=== PATIENT | female | born 1930 | race Caucasian/White ===

== ENCOUNTER → 2016-08-15 | Day surgery (SDC) | payer MEDICARE ==
[~2016-08-15] MED LIST: ACET-822 PO; APIX2.5T PO; ASPI81CH CHEW; BUPIVACAINE HCL PF 0.5% 30 ML VIAL ONE; BUPIVACAINE HCL PF 0.75% 30 ML VIAL ONE; COQ150CA PO; ENAL10TA PO; FAMO1TAB37 PO; GABA100C4 PO; HYDR12.57 PO; METO50TA PO; PROPOFOL 200 MG/20 ML AMP IV ONE; RED600TA PO; TRIAMCINOLONE ACETONIDE 40 MG/ML VIAL I-ARTICULR ONE; VITA2000 PO; ZETI10TA5 PO; methylPREDNISolone ACETATE 40 MG/ML VIAL I-ARTICULR ONE
--- NOTE | 2016-08-18 17:31 | M6 ---
cc: CARLENE GARLAND M.D. DATE 08/15/2016 DATE OF 1930 PROCEDURE Fluoroscopically guided bilateral lumbar facet joint injections (bilateral L3-4, L4-5 and L5-S1 facet joints). History and physical was completed and signed. Consent was signed. Procedure site was marked. Medications were listed and reconciled. Pain score was recorded. Allergies were noted. Time out was taken. Fluoroscopy time was recorded where applicable. Sedation was administered or directed by Dr. Garland. The patient was given oxygen. The patient was monitored by a registered nurse. Total procedure time was greater than 15 minutes. IV was started, blood pressure cuff, pulse oximeter and EKG were applied. The patient was placed in the prone position on a Brad table sedated with small amounts of propofol titrated to effect. Vital signs were monitored and remained stable throughout the procedure. The lumbar area was prepped with alcohol and 10% Betadine solution and draped with sterile drapes. Fluoroscopy was used in a Lonnie dog view to clearly visualize the bilateral lumbar facet joints at L3-4, L4-5 and L5-S1. Separate sterile 3-1/2-inch 25-gauge spinal needles were advanced into these joints under fluoroscopic guidance. There was negative aspiration for blood or any other type of fluid and at each location the patient was given 1 mL of Marcaine 0.75% which contained 10 milligrams of Kenalog. Following the procedure the patient was taken to the recovery room with stable vital signs, neurologically intact. W. MD LETI Robison/TWIN /10:54 AM /5:27 PM
== END | disposition home or self-care (01) ==
LOC: PHSDC 09:29
PROVIDERS: ATTEND Pain Medicine Interventional Pain Medicine
DX: M54.5 Low back pain (principal)
CPT/HCPCS: 64493; 64494; 64495; 99152; J1030; J3301

== ENCOUNTER 2017-10-31 08:27 | Observation (INO) ==
[2017-10-31 08:44] LABS: Baso # (Auto) 0.1 th/mm3 (0.0-0.2); Baso % (Auto) 1.3 % (0.0-2.0); Eos # (Auto) 0.1 th/mm3 (0.0-0.4); Hematocrit 45.8 % (35.0-46.0); Hemoglobin 16.1 gm/dL (11.6-15.3); Lymph # (Auto) 1.6 th/mm3 (1.0-4.8); Lymph % (Auto) 29.5 % (9.0-44.0); Mean Corpuscular HGB Conc 35.1 % (32.0-36.0); Mean Corpuscular Hemoglobin 32.4 pg (27.0-34.0); Mean Corpuscular Volume 92.4 fL (80.0-100.0); Mono # (Auto) 0.9 th/mm3 (0.0-0.9); Mono % (Auto) 16.4 % (0.0-8.0); Neut # (Auto) 2.7 th/mm3 (1.8-7.7); Neut % (Auto) 50.8 % (16.0-70.0); Platelet Count 199 th/mm3 (150-450); Red Blood Count 4.96 mil/mm3 (4.00-5.30); Red Cell Distribution Width 13.7 % (11.6-17.2); White Blood Count 5.4 th/mm3 (4.0-11.0)
--- NOTE | 2017-10-31 08:44 | ED ---
HPI General Chief Complaint: Neuro Symptoms/Deficit Stated Complaint: Evac/Stroke allert Time Seen by Provider: 10/31/17 08:33 Source: patient Mode of arrival: EMS Limitations: no limitations History of Present Illness HPI Narrative: The patient is a 86-year-old female who presents to the emergency department via EMS as a stroke alert. The patient states she awakened this morning, was feeling fine, however, developed some mild confusion. EMS states that in route to the hospital the patient stated she felt like she was having difficulty getting words out and they noticed a mild right facial droop. Therefore, EMS called a stroke alert in the field. Upon arrival the patient has minimal right facial droop, however, has no difficulty with speech. The patient's stroke scale was 1. The patient does take Eliquis for history of pulmonary embolism. The patient does have a history of significant coronary artery disease with previous CABG and a history of pulmonary embolism. She also has a history of hypertension. The patient states she was recently changed from lisinopril 2.5 mg twice a day to lisinopril 5 mg twice a day. However, the patient has been taking twice the dose as needed by accident. However, her blood pressure continues to be elevated. The patient is followed by her building maintenance technician, Dr. Anderson, and her primary physician, Dr. Thomas. The patient denies any acute weakness of the arms or legs. She denies any difficulty with movement of the upper or lower extremities. She denies any acute visual changes. He does complain of mild shortness of breath but denies any chest pain per Onset (ago): minute(s) Time: 08:38 Last Observed Normal: 08:20 Timing confirmed by: other (EMS) Location: right face History of same: No Severity: mild Quality: weak Relieving factors: none Exacerbating factors: none Context: sudden onset On Anticoagulants: Yes Associated symptoms: confusion Treatments Prior to Arrival: none Related Data Home Medications Medication Instructions Recorded Confirmed acetaminophen 1,000 mg PO Q6H PRN 09/04/17 10/31/17 aspirin 81 mg PO DAILY 09/04/17 10/31/17 cholecalciferol (vitamin D3) 2,000 unit PO DAILY 09/04/17 10/31/17 [Vitamin D3] coenzyme Q10 100 mg PO BID 09/04/17 10/31/17 gabapentin 300 mg PO BID 09/04/17 10/31/17 hydrochlorothiazide 12.5 mg PO DAILY 09/04/17 10/31/17 lisinopril 5 mg PO BID 09/04/17 10/31/17 metoprolol tartrate 25 mg PO BID 09/04/17 10/31/17 red yeast rice 600 mg PO BID 09/04/17 10/31/17 apixaban [Eliquis] 5 mg PO BID 09/05/17 10/31/17 Allergies Allergy/AdvReac Type Severity Reaction Status Date / Time diclofenac Allergy Severe Rash Verified 10/31/17 08:42 procaine Allergy Severe SHAKEY Verified 10/31/17 08:42 amlodipine Allergy Mild INDIGESTION Verified 10/31/17 08:42 atorvastatin Allergy Mild INDIGESTION Verified 10/31/17 08:42 pravastatin Allergy Mild INDIGESTION Verified 10/31/17 08:42 simvastatin Allergy Mild INDIGESTION Verified 10/31/17 08:42 Review of Systems ROS: all other systems reviewed are negative [facility] Medical History Medical History HTN (hypertension) (Acute) Myocardial infarction (Acute) Neuropathy (Acute) Surgical History Surgical History H/O knee surgery (Acute) S/P AVR (aortic valve replacement) (Acute) S/P CABG x 5 (Acute) S/P appy (Acute) Social History Social History Substance History: No History of Abuse Smoking Status: Never smoker How Often Do You Have a Drink Containing Alcohol: 2 to 4 times a month Recent Travel in [place] within the Last 8 Weeks: No Recent Out of Country Travel within the Last 8 Weeks: No Exam Narrative Exam Narrative: GENERAL: Awake, alert, pleasant 86-year-old female who appears her stated age and is in no acute respiratory distress. SKIN: Focused skin assessment warm/dry. HEAD: Atraumatic. Normocephalic. EYES: Pupils equal and round. Pupils are 3 mm bilateral and reactive. EOMs are intact. Visual bhandari are symmetric. ENT: No nasal bleeding or discharge. Mucous membranes pink and moist. NECK: Trachea midline. No JVD. CARDIOVASCULAR: Regular rate and rhythm. No murmur appreciated. RESPIRATORY: No accessory muscle use. Clear to auscultation. Breath sounds equal bilaterally. GASTROINTESTINAL: Abdomen soft, non-tender, nondistended. MUSCULOSKELETAL: No obvious deformities. No clubbing. No cyanosis. No edema. NEUROLOGICAL: Awake and alert. Minimal right facial droop. EOMs are intact. Visual bhandari are symmetric. Tongue is midline. No drift of the upper or lower extremities. Finger to nose is normal. Heel to eagle is normal. Patient is able to tell me the day, month, year, and identify my hand. Sensation is symmetric on the V1, V2, V3 distribution of the face. Sensation is also symmetric on the arms and legs bilaterally. PSYCHIATRIC: Appropriate mood and affect; insight and judgment normal. Course Initial Documented Vital Signs Blood Pressure 200/84 H 10/31/17 08:42 Last Documented Vital Signs Temperature 98.0 F 10/31/17 09:06 Pulse Rate 55 L 10/31/17 10:00 Respiratory Rate 16 10/31/17 10:00 Blood Pressure 188/87 H 10/31/17 10:00 Pulse Oximetry 97 10/31/17 10:00 Critical Care Time Critical Care Time: Yes Total Critical Care Time: 35 Attestation: Aggregate critical care time was 35 minutes. Time to perform other separately billable procedures was not included in the critical care time. My time did not include minutes spent treating any other patients simultaneously or on activities that did not directly contribute to the patient's treatment. The services I provided to this patient were to treat and/or prevent clinically significant deterioration that could result in: Intracranial hemorrhage, CVA, chronic neurologic deficit, herniation, . I provided critical care services requiring my management, as noted below: Chart data review, documentation time, medication orders and management, vital sign assessments/reviewing monitor data, ordering and reviewing lab tests, ordering and interpreting/reviewing x-rays and diagnostic studies, care of the patient and discussion of the patient with the admitting physicians. NIH Stroke Scale NIH Stroke Scale Level of Consciousness: 0-Alert Orientation Questions: 0-Answers both correct Responds to Commands: 0-Both tasks correct Gaze Eye Movement: 0-Horizontal movement WNL Visual Bhandari: 0-No visual field defect Facial Movement: 1-Minor facial palsy Motor Functions Arm LEFT: 0-No drift Motor Functions Arm RIGHT: 0-No drift Motor Functions Leg LEFT: 0-No drift Motor Functions Leg RIGHT: 0-No drift Limb Ataxia: 0-No ataxia Sensory Loss: 0-No sensory loss Best Language: 0-Normal Articulation: 0-Normal Extinction or Inattention Sensory: 0-Absent Total: 1 Medical Decision Making MDM Narrative Medical decision making narrative: IV was established, labs are drawn and sent, and the patient was placed on cardiac telemetry monitoring and continuous pulse oximetry monitoring. The patient was called a stroke alert in the field, her assessment in the emergency department as a stroke scale of 1. I do not believe the patient would be a candidate for TPA secondary to a stroke scale of 1 and currently began on Eliquis. The patient may have hypertensive urgency/ emergency with her elevated blood pressure. I discussed the patient immediately with Dr. Calabrese, the on-call neurologist, who agrees with noncontrast CT the brain but no TPA administration. MRI of the brain reveals possible hemorrhage in the left basal ganglia, MRI was recommended. I discussed the patient with Dr. Anselmo Chowdhury, MRI of the brain was obtained. The head of the bed was placed about 30. MRI of the brain is negative for hemorrhage. The patient is already on Eliquis, will hold other anticoagulants until evaluation by medicine. I discussed the patient with Dr. Garcia who agrees with admission. Medical Screen Exam Complete: Yes Emergency Medical Condition: Yes Differential Diagnosis Differential Diagnosis: Differential diagnosis includes CVA, TIA, intracranial hemorrhage, hypertensive urgency, hypertensive emergency, transient global amnesia, encephalitis. Lab Data Result diagrams: 10/31/17 08:23 10/31/17 08:23 Lab Results 10/31/17 10/31/17 10/31/17 Range/Units 08:23 08:23 08:23 CBC w Diff Auto diff final WBC 5.4 (4.0-11.0) th/mm3 RBC 4.96 (4.00-5.30) mil/mm3 Hgb 16.1 H (11.6-15.3) gm/dL Hct 45.8 (35.0-46.0) % MCV 92.4 (80.0-100.0) fL MCH 32.4 (27.0-34.0) pg MCHC 35.1 (32.0-36.0) % RDW 13.7 (11.6-17.2) % Plt Count 199 (150-450) th/mm3 MPV 8.0 (7.0-11.0) fL Neut % (Auto) 50.8 (16.0-70.0) % Lymph % (Auto) 29.5 (9.0-44.0) % [place]house % (Auto) 16.4 H (0.0-8.0) % Eos % (Auto) 2.0 (0.0-4.0) % Baso % (Auto) 1.3 (0.0-2.0) % Neut # (Auto) 2.7 (1.8-7.7) th/mm3 Lymph # (Auto) 1.6 (1.0-4.8) th/mm3 Morehouse # (Auto) 0.9 (0.0-0.9) th/mm3 Eos # (Auto) 0.1 (0.0-0.4) th/mm3 Baso # (Auto) 0.1 (0.0-0.2) th/mm3 WBC Differential . Differential Comment . PT 11.2 (9.8-11.6) sec INR 1.1 Ratio APTT 29.2 (24.3-30.1) sec Fibrinogen 373 (227-377) mg/dL Sodium (136-145) meq/L Potassium (3.5-5.1) meq/L Chloride (98-107) meq/L Carbon Dioxide (21.0-32.0) meq/L Anion Gap (5-15) meq/L BUN (7-18) mg/dL Creatinine (0.50-1.00) mg/dL Estimated GFR (>89) mL/min POC Glucose (68-110) mg/dl Random Glucose (74-106) mg/dL Calcium (8.5-10.1) mg/dL Total Bilirubin (0.2-1.0) mg/dL AST (15-37) U/L ALT (10-53) U/L Alkaline Phosphatase (45-117) U/L Total Creatine Kinase 55 (26-192) U/L Troponin I Less than 0.02 L (0.02-0.05) ng/mL Total Protein (6.4-8.2) g/dL Albumin (3.4-5.0) g/dL Beta HCG, Quant Cancelled Ur Collection Type Urine Color (Yellw/Straw) Urine Clarity (Clear) Urine pH (5.0-8.5) Ur Specific [place] (1.002-1.035) Urine Protein (Neg-Trace) mg/dL Urine Glucose (UA) (Negative) mg/dL Urine Ketones (Negative) mg/dL Urine Occult Blood (Negative) Urine Nitrate (Negative) Urine Bilirubin (Negative) Urine Urobilinogen (Less than 2) mg/dL Ur Leukocyte Esterase (Negative) Urine WBC (0-5) /hpf Ur Squamous Epith Cells (0-5) /hpf Micro UA Comment Ur Microscopic Review Urine Culture Comments Urine Opiates Screen (Neg) Ur Barbiturates Screen (Neg) Ur Amphetamines Screen (Neg) U Benzodiazepines Scrn (Neg) Urine Cocaine Screen (Neg) U Cannabinoids Screen (Neg) 10/31/17 10/31/17 10/31/17 Range/Units 08:23 08:59 09:30 CBC w Diff WBC (4.0-11.0) th/mm3 RBC (4.00-5.30) mil/mm3 Hgb (11.6-15.3) gm/dL Hct (35.0-46.0) % MCV (80.0-100.0) fL MCH (27.0-34.0) pg MCHC (32.0-36.0) % RDW (11.6-17.2) % Plt Count (150-450) th/mm3 MPV (7.0-11.0) fL Neut % (Auto) (16.0-70.0) % Lymph % (Auto) (9.0-44.0) % [place]house % (Auto) (0.0-8.0) % Eos % (Auto) (0.0-4.0) % Baso % (Auto) (0.0-2.0) % Neut # (Auto) (1.8-7.7) th/mm3 Lymph # (Auto) (1.0-4.8) th/mm3 [place]house # (Auto) (0.0-0.9) th/mm3 Eos # (Auto) (0.0-0.4) th/mm3 Baso # (Auto) (0.0-0.2) th/mm3 WBC Differential Differential Comment PT (9.8-11.6) sec INR Ratio APTT (24.3-30.1) sec Fibrinogen (227-377) mg/dL Sodium 130 L (136-145) meq/L Potassium 4.0 (3.5-5.1) meq/L Chloride 94 L (98-107) meq/L Carbon Dioxide 26.7 (21.0-32.0) meq/L Anion Gap 9 (5-15) meq/L BUN 9 (7-18) mg/dL Creatinine 0.87 (0.50-1.00) mg/dL Estimated GFR 62 L (>89) mL/min POC Glucose 93 (68-110) mg/dl Random Glucose 93 (74-106) mg/dL Calcium 9.6 (8.5-10.1) mg/dL Total Bilirubin 0.2 (0.2-1.0) mg/dL AST 26 (15-37) U/L ALT 26 (10-53) U/L Alkaline Phosphatase 52 (45-117) U/L Total Creatine Kinase (26-192) U/L Troponin I (0.02-0.05) ng/mL Total Protein 6.8 (6.4-8.2) g/dL Albumin 3.4 (3.4-5.0) g/dL Beta HCG, Quant Ur Collection Type Urine Color (Yellw/Straw) Urine Clarity (Clear) Urine pH (5.0-8.5) Ur Specific [place] (1.002-1.035) Urine Protein (Neg-Trace) mg/dL Urine Glucose (UA) (Negative) mg/dL Urine Ketones (Negative) mg/dL Urine Occult Blood (Negative) Urine Nitrate (Negative) Urine Bilirubin (Negative) Urine Urobilinogen (Less than 2) mg/dL Ur Leukocyte Esterase (Negative) Urine WBC (0-5) /hpf Ur Squamous Epith Cells (0-5) /hpf Micro UA Comment Ur Microscopic Review Urine Culture Comments Urine Opiates Screen Neg (Neg) Ur Barbiturates Screen Neg (Neg) Ur Amphetamines Screen Neg (Neg) U Benzodiazepines Scrn Neg (Neg) Urine Cocaine Screen Neg (Neg) U Cannabinoids Screen Neg (Neg) 10/31/17 Range/Units 09:30 CBC w Diff WBC (4.0-11.0) th/mm3 RBC (4.00-5.30) mil/mm3 Hgb (11.6-15.3) gm/dL Hct (35.0-46.0) % MCV (80.0-100.0) fL MCH (27.0-34.0) pg MCHC (32.0-36.0) % RDW (11.6-17.2) % Plt Count (150-450) th/mm3 MPV (7.0-11.0) fL Neut % (Auto) (16.0-70.0) % Lymph % (Auto) (9.0-44.0) % [place] % (Auto) (0.0-8.0) % Eos % (Auto) (0.0-4.0) % Baso % (Auto) (0.0-2.0) % Neut # (Auto) (1.8-7.7) th/mm3 Lymph # (Auto) (1.0-4.8) th/mm3 [place] # (Auto) (0.0-0.9) th/mm3 Eos # (Auto) (0.0-0.4) th/mm3 Baso # (Auto) (0.0-0.2) th/mm3 WBC Differential Differential Comment PT (9.8-11.6) sec INR Ratio APTT (24.3-30.1) sec Fibrinogen (227-377) mg/dL Sodium (136-145) meq/L Potassium (3.5-5.1) meq/L Chloride (98-107) meq/L Carbon Dioxide (21.0-32.0) meq/L Anion Gap (5-15) meq/L BUN (7-18) mg/dL Creatinine (0.50-1.00) mg/dL Estimated GFR (>89) mL/min POC Glucose (68-110) mg/dl Random Glucose (74-106) mg/dL Calcium (8.5-10.1) mg/dL Total Bilirubin (0.2-1.0) mg/dL AST (15-37) U/L ALT (10-53) U/L Alkaline Phosphatase (45-117) U/L Total Creatine Kinase (26-192) U/L Troponin I (0.02-0.05) ng/mL Total Protein (6.4-8.2) g/dL Albumin (3.4-5.0) g/dL Beta HCG, Quant Ur Collection Type Cath Urine Color Yellow (Yellw/Straw) Urine Clarity Clear (Clear) Urine pH 7.0 (5.0-8.5) Ur Specific [place] Less/equal 1.005 (1.002-1.035) Urine Protein Negative (Neg-Trace) mg/dL Urine Glucose (UA) Negative (Negative) mg/dL Urine Ketones Negative (Negative) mg/dL Urine Occult Blood Negative (Negative) Urine Nitrate Negative (Negative) Urine Bilirubin Negative (Negative) Urine Urobilinogen 0.2 (Less than 2) mg/dL Ur Leukocyte Esterase Negative (Negative) Urine WBC 0-5 (0-5) /hpf Ur Squamous Epith Cells 0-5 (0-5) /hpf Micro UA Comment Cath-culture not ind Ur Microscopic Review Microscopic reviewed Urine Culture Comments Cath-cult not ind Urine Opiates Screen (Neg) Ur Barbiturates Screen (Neg) Ur Amphetamines Screen (Neg) U Benzodiazepines Scrn (Neg) Urine Cocaine Screen (Neg) U Cannabinoids Screen (Neg) Imaging Data Radiologist's impression: Chest X-Ray 10/31/17 08:34 CONCLUSION: Previous bypass with mild compensated cardiomegaly. Head CT 10/31/17 08:34 CONCLUSION: 1. Possible small lacunar type hemorrhage basal ganglia left side. This could be confirmed by MRI. Report was called to Dr. Ashby at 08 57. Head MRI 10/31/17 09:05 CONCLUSION: 1. Mild chronic ischemic white matter changes. 2. No evidence of acute infarct, hemorrhage, mass or edema. 3. Hyperostosis frontalis. ECG Data EKG Prior to Arrival: No Attestation: I personally reviewed and interpreted this ECG as follows: Interpretation: EKG reveals sinus bradycardia. Nonspecific ST-T wave changes. Flattening of the T waves noted in lead V4, V5, V6. Discharge Plan Discharge Disposition Patient Disposition: 30 Still Patient Discharge Condition Condition: Stable Discharge Details Diagnosis: Transient cerebral ischemia, Hypertensive urgency Physicians Team ED Provider: Alejandro Hardwick Primary Care Provider: Luci Shook Other Providers: Ayaz Calabrese Rxs /Orders / Referrals /Forms Prescriptions: No Action acetaminophen 500 mg Tablet 1,000 mg PO Q6H PRN (Reason: Pain) RF: 0 hydrochlorothiazide 12.5 mg Capsule 12.5 mg PO DAILY RF: 0 gabapentin 300 mg Capsule 300 mg PO BID RF: 0 aspirin 81 mg Tablet,Chewable 81 mg PO DAILY RF: 0 lisinopril 5 mg Tablet 5 mg PO BID RF: 0 coenzyme Q10 100 mg Capsule 100 mg PO BID RF: 0 metoprolol tartrate 25 mg Tablet 25 mg PO BID RF: 0 cholecalciferol (vitamin D3) [Vitamin D3] 2,000 unit Capsule 2,000 unit PO DAILY RF: 0 red yeast rice 600 mg Tablet 600 mg PO BID RF: 0 apixaban [Eliquis] 5 mg Tablet 5 mg PO BID RF: 0 Discharge Interventions Interventions: Vital Signs Last Done: 10/31/17 10:00 Status ED Status: Pending Admission
--- NOTE | 2017-10-31 08:59 | CT ---
EXAM DATE: 10/31/2017 8:48 AM EDT AGE/SEX: 86 years / Female INDICATIONS: Stroke alert. Right facial droop. CLINICAL DATA: This is the patient's initial encounter. Patient reports that signs and symptoms have been present for 1 day and indicates a pain score of 0/10. MEDICAL/SURGICAL HISTORY: None. None. RADIATION DOSE: 58.13 CTDI (mGy) COMPARISON: No prior exams available for comparison. TECHNIQUE: CT of the head without contrast. Using automated exposure control and adjustment of the mA and/or kV according to patient size, radiation dose was kept as low as reasonably achievable to ob tain optimal diagnostic quality images. DICOM format image data is available electronically for revi ew and comparison. FINDINGS: Cerebrum: There is minimal increased density in the basal ganglia. Linear area of increased density on the left could be a small hemorrhage. This is an unusual appearance for calcification. Ventricular size is appropriate. There are no extra-axial fluid collections appreciated. Posterior Fossa: The cerebellum and brainstem are intact. The 4th ventricle is midline. The cerebe llopontine angle is unremarkable. Extracranial: The visualized portion of the orbits is intact. Skull: The calvaria is intact. No evidence of skull fracture. CONCLUSION: 1. Possible small lacunar type hemorrhage basal ganglia left side. This could be confirmed by MRI. Report was called to Dr. Ashby at 08 57. Electronically signed by: Anselmo Chowdhury MD 10/31/2017 8:58 AM EDT
[2017-10-31 09:07] LABS: Activated Partial Thrombo Time 29.2 sec (24.3-30.1); INR 1.1 Ratio; Prothrombin Time 11.2 sec (9.8-11.6)
[2017-10-31 09:08] LABS: Chloride 94 meq/L (98-107); Sodium 130 meq/L (136-145)
[2017-10-31 09:09] LABS: Alanine Aminotransferase 26 U/L (10-53); Albumin 3.4 g/dL (3.4-5.0); Anion Gap 9 meq/L (5-15); Aspartate Aminotransferase 26 U/L (15-37); Blood Urea Nitrogen 9 mg/dL (7-18); Calcium 9.6 mg/dL (8.5-10.1); Carbon Dioxide 26.7 meq/L (21.0-32.0); Glomerular Filtration Rate 62 mL/min (>89); Glucose,Random 93 mg/dL (74-106); Total Protein 6.8 g/dL (6.4-8.2)
[2017-10-31 09:10] LABS: Alkaline Phosphatase 52 U/L (45-117)
[2017-10-31 09:14] LABS: Creatine Kinase 55 U/L (26-192)
--- NOTE | 2017-10-31 09:36 | XR ---
EXAM DATE: 10/31/2017 9:28 AM EDT AGE/SEX: 86 years / Female INDICATIONS: Stroke alert. CLINICAL DATA: This is the patient's initial encounter. Patient reports that signs and symptoms have been present for 1 day and indicates a pain score of 0/10. MEDICAL/SURGICAL HISTORY: Cardiovascular disease. CABG. valve replacement COMPARISON: [facility], RIBS RIGHT(W PA CXR MIN 3VWS), 01/06/2015. . FINDINGS: Sternal wires previous bypass are noted. Heart is minimally enlarged. Vascularity is normal. Physiolo gic consolidation, pleural effusion or pneumothorax. The portion of the bony skeleton visualized is unremarkable. CONCLUSION: Previous bypass with mild compensated cardiomegaly. Electronically signed by: Anselmo Chowdhury MD 10/31/2017 9:35 AM EDT
[2017-10-31] MEDS: Sod Chloride 0.9% Inj 1,000 ML IV.CONT SCH (09:50)
[2017-10-31 09:51] LABS: Bilirubin,Urine Negative (Negative); Clarity,Urine Clear (Clear); Color,Urine Yellow (Yellw/Straw); Glucose,Urine (UA) Negative (Negative); Leukocyte Esterase,Urine Negative (Negative); Nitrite,Urine Negative (Negative); Specific Gravity,Urine Less/Equal 1.005 (1.002-1.035); Urobilinogen,Urine 0.2 mg/dL (Less than 2)
[2017-10-31 09:57] LABS: WBC,Urine 0-5 /hpf (0-5)
[2017-10-31 09:58] LABS: Squamous Epithelial Cell,Urine 0-5 /hpf (0-5)
[2017-10-31 10:04] LABS: Amphetamine Screen,Urine Neg (Neg)
[2017-10-31 10:11] LABS: Barbiturate Screen,Urine Neg (Neg)
[2017-10-31 10:12] LABS: Cannabinoid Screen,Urine Neg (Neg); Cocaine Screen,Urine Neg (Neg)
[2017-10-31 10:16] LABS: Opiate Screen,Urine Neg (Neg)
--- NOTE | 2017-10-31 11:10 | MR ---
EXAM DATE: 10/31/2017 11:02 AM EDT AGE/SEX: 86 years / Female INDICATIONS: Stroke alert. CLINICAL DATA: This is the patient's initial encounter. Patient reports that signs and symptoms have been present for 1 day and indicates a pain score of 2/10. MEDICAL/SURGICAL HISTORY: Hypertension. Myocardial infarction. CABG. Appendectomy. COMPARISON: [facility], CT HEAD W/O CONTRAST, 10/31/2017. . TECHNIQUE: Multiplanar, multisequence examination of the brain was performed without contrast. FINDINGS: Cerebrum: The ventricles are normal for age. No evidence of midline shift, mass lesion, hemorrhage or acute infarction. No extraaxial fluid collections are seen. The pituitary gland and suprasellar cistern are normal in configuration. White Matter: Scattered T2 hyperintense foci are seen throughout the cerebral white matter predomina ntly within the centrum semiovale bilaterally. Posterior Fossa: The cerebellum and brainstem are intact. The 4th ventricle is midline. The cerebel lopontine angle is unremarkable. The cerebellar tonsils are normal in position. Diffusion Imaging: No focal areas of restricted diffusion are seen. No evidence of acute infarction . Extracranial: The visualized portions of the orbits and paranasal sinuses are unremarkable. CONCLUSION: 1. Mild chronic ischemic white matter changes. 2. No evidence of acute infarct, hemorrhage, mass or edema. 3. Hyperostosis frontalis. Electronically signed by: Michael Majano MD 10/31/2017 11:09 AM EDT
[2017-10-31] MEDS ORDERED: Acetaminophen 500 MG Tablet PO PRN (11:54)
[2017-10-31] MEDS ORDERED: Bisacodyl 10 MG Supp RECTAL PRN (11:58)
[2017-10-31] MEDS ORDERED: amLODIPine 5 MG Tablet PO ONE (12:02)
--- NOTE | 2017-10-31 14:09 | ECG ---
Date Performed: 10/31/2017 Time Performed: 09:06:35 PTAGE: 86 years EKG: SINUS BRADYCARDIA NONSPECIFIC ST & T-WAVE ABNORMALITY BORDERLINE ECG Since the PREVIOUS TRACING , no significant change noted PREVIOUS TRACIN07/27/2011 07.09 DOCTOR: Tj Morse Interpretating Date/Time 10/31/2017 14:05:10
--- NOTE | 2017-10-31 14:10 | P.HP ---
History of Present Illness Service: [facility] Primary Care Physician: Luci Shook MD Chief Complaint: Mild confusion right facial droop History of Present Illness: Patient is an 86-year-old female who presented to the emergency department via [facility] as a stroke alert. Patient states she awakened this morning was feeling fine, however developed some mild confusion. EMS stated that on her arrival they noticed that she had difficulty getting words out of the noticed a mild right facial droop. Upon arrival in the emergency room the right facial droop and confusion and difficulty with speech resolved. Patient's "stroke scale was 1. The patient does take Eliquis for history of pulmonary embolism. She does have a history of significant coronary artery disease with previous CABG and a history of pulmonary embolus. She also has a history of hypertension her blood pressure has been running high and she was recently changed from lisinopril 2.5- 5 mg twice daily. She took extra lisinopril as well. Patient at this time denies any acute weakness of her arms or legs any difficulty with movement of the upper or lower extremities any visual changes nor at this time that she have any significant shortness of breath or any chest pain. Does not have any neurological symptoms she did say she felt a fullness in her head area for the last several days which could be consistent with her accelerated hypertension her blood pressure is high now we will add amlodipine to her current blood pressure medicines will use Vasotec as needed and follow blood pressure will also get a 2D echo and a carotid ultrasound. - Diagnosis (1) Transient cerebral ischemia (2) Hypertensive urgency (3) History of pulmonary embolism Review of Systems All other systems reviewed negative except as stated in HPI [facility] - History History Provided By: Patient - Medical History Medical History: Medical History (Last Updated 10/31/17 @ 09:11 by Carmen Malave RN) HTN (hypertension) Myocardial infarction Neuropathy - Surgical History Surgical History: Surgical History (Last Updated 10/31/17 @ 09:11 by Carmen Malave RN) H/O knee surgery S/P AVR (aortic valve replacement) S/P CABG x 5 S/P appy - Tobacco History Second Hand Smoke Exposure: No Smoking Status: Never smoker - Alcohol History How Often Do You Have a Drink Containing Alcohol: Never - Substance Use History Substance History: No History of Abuse - Travel History Recent Travel in the [facility] Within the Last 8 Weeks: No Recent Travel Out of the Country Within the Last 8 Weeks: No - Immunization History Tetanus Immunization: <5 Years Hx Influenza Vaccine This Season: No Medications and Allergies Active Medications: Active Medications Acetaminophen (Tylenol) 1,000 mg PO Q6H PRN PRN Reason: PAIN SCALE 1 TO 10 Amlodipine Besylate (Norvasc) 5 mg PO DAILY [facility] Apixaban (Eliquis) 5 mg PO BID [facility] Aspirin (Aspirin Chew) 81 mg PO DAILY [facility] Bisacodyl (Dulcolax Supp) 10 mg RECTAL DAILY PRN PRN Reason: SEVERE CONSITIPATION Enalaprilat (Vasotec Inj) 1.25 mg IV.PUSH Q6H PRN PRN Reason: SBP> OR = 180, DBP> OR = 100 Gabapentin (Neurontin) 300 mg PO BID [facility] Hydrochlorothiazide (Microzide) 12.5 mg PO DAILY [facility] Sodium Chloride (Ns Inj) 1,000 mls @ 70 mls/hr IV.CONT .[id number] [facility] Last Infusion: 10/31/17 12:25 Dose: 70 mls/hr Lactulose (Lactulose Liq) 30 ml PO DAILY PRN PRN Reason: SEVERE CONSITIPATION Lisinopril (Prinivil) 5 mg PO BID [facility] Metoprolol Tartrate (Lopressor) 25 mg PO BID [facility] Senna/Docusate Sodium (Debbi-Colace) 1 tab PO BID [facility] Sennosides (Senokot) 17.2 mg PO Q12H PRN PRN Reason: Moderate Constipation Vitamin D (Vitamin D3) 2,000 unit PO DAILY [facility] Allergies Allergy/AdvReac Type Severity Reaction Status Date / Time diclofenac Allergy Severe Rash Verified 10/31/17 08:42 procaine Allergy Severe SHAKEY Verified 10/31/17 08:42 amlodipine AdvReac Mild INDIGESTION Verified 10/31/17 12:19 atorvastatin AdvReac Mild INDIGESTION Verified 10/31/17 12:19 pravastatin AdvReac Mild INDIGESTION Verified 10/31/17 12:19 simvastatin AdvReac Mild INDIGESTION Verified 10/31/17 12:19 Home Medications Medication Instructions Recorded Confirmed Type acetaminophen 1,000 mg PO Q6H PRN 09/04/17 10/31/17 History aspirin 81 mg PO DAILY 09/04/17 10/31/17 History cholecalciferol (vitamin D3) 2,000 unit PO DAILY 09/04/17 10/31/17 History [Vitamin D3] coenzyme Q10 100 mg PO BID 09/04/17 10/31/17 History gabapentin 300 mg PO BID 09/04/17 10/31/17 History hydrochlorothiazide 12.5 mg PO DAILY 09/04/17 10/31/17 History lisinopril 5 mg PO BID 09/04/17 10/31/17 History metoprolol tartrate 25 mg PO BID 09/04/17 10/31/17 History red yeast rice 600 mg PO BID 09/04/17 10/31/17 History apixaban [Eliquis] 5 mg PO BID 09/05/17 10/31/17 History Exam Vital signs: Vital Signs 10/31/17 08:42 10/31/17 09:06 10/31/17 09:13 Temperature 98.0 F Pulse Rate 60 Respiratory Rate 18 Blood Pressure 200/84 H 199/93 H Pulse Oximetry 97 97 10/31/17 09:30 10/31/17 10:00 10/31/17 12:00 Temperature Pulse Rate 57 L 55 L 61 Respiratory Rate 16 16 18 Blood Pressure 202/100 H 188/87 H 181/75 H Pulse Oximetry 98 97 98 10/31/17 13:51 Temperature 98.5 F Pulse Rate 63 Respiratory Rate 21 Blood Pressure 195/88 H Pulse Oximetry 98 Intake & Output 10/30/17 10/31/17 10/31/17 18:59 06:59 18:59 Weight 105.233 kg Other: Date of Last Bowel Movement 10/31/17 Weight On Admission 105.233 kg Results - Labs CBC & Chem 7: 10/31/17 08:23 10/31/17 08:23 Labs: Laboratory Results - last 24 hr 10/31/17 10/31/17 10/31/17 08:23 08:23 08:23 CBC w Diff Auto diff final WBC 5.4 RBC 4.96 Hgb 16.1 H Hct 45.8 MCV 92.4 MCH 32.4 MCHC 35.1 RDW 13.7 Plt Count 199 MPV 8.0 Neut % (Auto) 50.8 Lymph % (Auto) 29.5 [place] % (Auto) 16.4 H Eos % (Auto) 2.0 Baso % (Auto) 1.3 Neut # (Auto) 2.7 Lymph # (Auto) 1.6 [place] # (Auto) 0.9 Eos # (Auto) 0.1 Baso # (Auto) 0.1 WBC Differential . Differential Comment . PT 11.2 INR 1.1 APTT 29.2 Fibrinogen 373 Sodium Potassium Chloride Carbon Dioxide Anion Gap BUN Creatinine Estimated GFR POC Glucose Random Glucose Calcium Total Bilirubin AST ALT Alkaline Phosphatase Total Creatine Kinase 55 Troponin I Less than 0.02 L Total Protein Albumin Beta HCG, Quant Cancelled Ur Collection Type Urine Color Urine Clarity Urine pH Ur Specific [place] Urine Protein Urine Glucose (UA) Urine Ketones Urine Occult Blood Urine Nitrate Urine Bilirubin Urine Urobilinogen Ur Leukocyte Esterase Urine WBC Ur Squamous Epith Cells Micro UA Comment Ur Microscopic Review Urine Culture Comments Urine Opiates Screen Ur Barbiturates Screen Ur Amphetamines Screen U Benzodiazepines Scrn Urine Cocaine Screen U Cannabinoids Screen Blood Type Antibody Screen 10/31/17 10/31/17 10/31/17 08:23 08:59 09:30 CBC w Diff WBC RBC Hgb Hct MCV MCH MCHC RDW Plt Count MPV Neut % (Auto) Lymph % (Auto) [place] % (Auto) Eos % (Auto) Baso % (Auto) Neut # (Auto) Lymph # (Auto) [place] # (Auto) Eos # (Auto) Baso # (Auto) WBC Differential Differential Comment PT INR APTT Fibrinogen Sodium 130 L Potassium 4.0 Chloride 94 L Carbon Dioxide 26.7 Anion Gap 9 BUN 9 Creatinine 0.87 Estimated GFR 62 L POC Glucose 93 Random Glucose 93 Calcium 9.6 Total Bilirubin 0.2 AST 26 ALT 26 Alkaline Phosphatase 52 Total Creatine Kinase Troponin I Total Protein 6.8 Albumin 3.4 Beta HCG, Quant Ur Collection Type Urine Color Urine Clarity Urine pH Ur Specific [place] Urine Protein Urine Glucose (UA) Urine Ketones Urine Occult Blood Urine Nitrate Urine Bilirubin Urine Urobilinogen Ur Leukocyte Esterase Urine WBC Ur Squamous Epith Cells Micro UA Comment Ur Microscopic Review Urine Culture Comments Urine Opiates Screen Ur Barbiturates Screen Ur Amphetamines Screen U Benzodiazepines Scrn Urine Cocaine Screen U Cannabinoids Screen Blood Type O Positive Antibody Screen Negative 10/31/17 10/31/17 09:30 09:30 CBC w Diff WBC RBC Hgb Hct MCV MCH MCHC RDW Plt Count MPV Neut % (Auto) Lymph % (Auto) [place] % (Auto) Eos % (Auto) Baso % (Auto) Neut # (Auto) Lymph # (Auto) [place] # (Auto) Eos # (Auto) Baso # (Auto) WBC Differential Differential Comment PT INR APTT Fibrinogen Sodium Potassium Chloride Carbon Dioxide Anion Gap BUN Creatinine Estimated GFR POC Glucose Random Glucose Calcium Total Bilirubin AST ALT Alkaline Phosphatase Total Creatine Kinase Troponin I Total Protein Albumin Beta HCG, Quant Ur Collection Type Cath Urine Color Yellow Urine Clarity Clear Urine pH 7.0 Ur Specific [place] Less/equal 1.005 Urine Protein Negative Urine Glucose (UA) Negative Urine Ketones Negative Urine Occult Blood Negative Urine Nitrate Negative Urine Bilirubin Negative Urine Urobilinogen 0.2 Ur Leukocyte Esterase Negative Urine WBC 0-5 Ur Squamous Epith Cells 0-5 Micro UA Comment Cath-culture not ind Ur Microscopic Review Microscopic reviewed Urine Culture Comments Cath-cult not ind Urine Opiates Screen Neg Ur Barbiturates Screen Neg Ur Amphetamines Screen Neg U Benzodiazepines Scrn Neg Urine Cocaine Screen Neg U Cannabinoids Screen Neg Blood Type Antibody Screen - Imaging Impressions Chest X-Ray 10/31/17 08:34 CONCLUSION: Previous bypass with mild compensated cardiomegaly. Head CT 10/31/17 08:34 CONCLUSION: 1. Possible small lacunar type hemorrhage basal ganglia left side. This could be confirmed by MRI. Report was called to Dr. Ashby at 08 57. Head MRI 10/31/17 09:05 CONCLUSION: 1. Mild chronic ischemic white matter changes. 2. No evidence of acute infarct, hemorrhage, mass or edema. 3. Hyperostosis frontalis. Caprini VTE Risk Assessment Caprini VTE Risk Assessment: Moderate/High Risk (score >= 2) Caprini Risk Assessment Model: Point Value = 1 Point Value = 2 Point Value = 3 Point Value = 5 Age 41-60 Minor surgery BMI > 25 kg/m2 Swollen legs Varicose veins or History of unexplained or recurrent spontaneous Oral contraceptives or hormone replacement Sepsis (< 1 month) Serious lung disease, including pneumonia (< 1 month) Abnormal pulmonary function Acute myocardial infarction Congestive heart failure (< 1 month) History of inflammatory bowel disease Medical patient at bed rest Age 61-74 Arthroscopic surgery Major open surgery (> 45 min) Laparoscopic surgery (> 45 min) Malignancy Confined to bed (> 72 hours) Immobilizing plaster cast Central venous access Age >= 75 History of VTE Family history of VTE Factor V Leiden Prothrombin [id number] Lupus anticoagulant Anticardiolipin antibodies Elevated serum homocysteine Heparin-induced thrombocytopenia Other congenital or acquired thrombophilia Stroke (< 1 month) Elective arthroplasty Hip, pelvis, or leg fracture Acute spinal cord injury (< 1 month) Prophylaxis Regimen: Total Risk Factor Score Risk Level Prophylaxis Regimen 0-1 Low Early ambulation 2 Moderate Order ONE of the following: *Sequential Compression Device (SCD) *Heparin 5000 units SQ BID 3-4 Higher Order ONE of the following medications: *Heparin 5000 units SQ TID *Enoxaparin/Lovenox 40 mg SQ daily (WT < 150 kg, CrCl > 30 mL/min) *Enoxaparin/Lovenox 30 mg SQ daily (WT < 150 kg, CrCl > 10-29 mL/min) *Enoxaparin/Lovenox 30 mg SQ BID (WT < 150 kg, CrCl > 30 mL/min) AND/OR *Sequential Compression Device (SCD) 5 or more Highest Order ONE of the following medications: *Heparin 5000 units SQ TID (Preferred with Epidurals) *Enoxaparin/Lovenox 40 mg SQ daily (WT < 150 kg, CrCl > 30 mL/min) *Enoxaparin/Lovenox 30 mg SQ daily (WT < 150 kg, CrCl > 10-29 mL/min) *Enoxaparin/Lovenox 30 mg SQ BID (WT < 150 kg, CrCl > 30 mL/min) AND *Sequential Compression Device (SCD) Assessment and Plan - Assessment (1) Transient cerebral ischemia Code(s): G45.9 - Transient cerebral ischemic attack, unspecified Status: Acute Plan: MRI of the brain has been done which is unremarkable for acute CVA CT of the head was also not really significant we will get a 2D echo of the heart and carotid ultrasound patient is already on Eliquis will continue (2) Hypertensive urgency Code(s): I16.0 - Hypertensive urgency Status: Acute Plan: For her blood pressure will continue lisinopril at a dose of 5 mg twice daily for now have added amlodipine 5 mg a day and will use Vasotec as needed as necessary we will follow labs she did have a sodium which was a little low at 130 on admission (3) History of pulmonary embolism Code(s): Z86.711 - Personal history of pulmonary embolism Status: Acute Plan: For history of PE will continue her on Eliquis - Plan Further plan as case develops Discussed Condition With: Patient (1) Transient cerebral ischemia Qualifiers: Transient cerebral ischemia type: unspecified Qualified Code(s): G45.9 - Transient cerebral ischemic attack, unspecified
--- NOTE | 2017-10-31 15:09 | P.CONNEU ---
History of Present Illness Service: Neurology Primary Care Provider: Luci Shook MD Family Provider: Luci Shook MD Chief Complaint: Mild confusion right facial droop History of Present Illness: 86-year-old female on oral anticoagulation presents emergency department with symptoms of confusion and some right facial weakness noted by [facility]. Symptoms had improved in the ER. Blood pressure 202/100. CT brain scan showing bilateral basal ganglia calcification Review of Systems All other systems reviewed negative except as stated in HPI [facility] - History History Provided By: Patient - Medical History Medical History: Medical History (Last Updated 10/31/17 @ 09:11 by Carmen Malave RN) HTN (hypertension) Myocardial infarction Neuropathy - Surgical History Surgical History: Surgical History (Last Updated 10/31/17 @ 09:11 by Carmen Malave RN) H/O knee surgery S/P AVR (aortic valve replacement) S/P CABG x 5 S/P appy - Tobacco History Second Hand Smoke Exposure: No Smoking Status: Never smoker - Alcohol History How Often Do You Have a Drink Containing Alcohol: Never - Substance Use History Substance History: No History of Abuse - Travel History Recent Travel in the [facility] Within the Last 8 Weeks: No Recent Travel Out of the Country Within the Last 8 Weeks: No - Immunization History Tetanus Immunization: <5 Years Hx Influenza Vaccine This Season: No Medications and Allergies Active Medications: Active Medications Acetaminophen (Tylenol) 1,000 mg PO Q6H PRN PRN Reason: PAIN SCALE 1 TO 10 Amlodipine Besylate (Norvasc) 5 mg PO DAILY [facility] Apixaban (Eliquis) 5 mg PO BID [facility] Aspirin (Aspirin Chew) 81 mg PO DAILY [facility] Bisacodyl (Dulcolax Supp) 10 mg RECTAL DAILY PRN PRN Reason: SEVERE CONSITIPATION Enalaprilat (Vasotec Inj) 1.25 mg IV.PUSH Q6H PRN PRN Reason: SBP> OR = 180, DBP> OR = 100 Gabapentin (Neurontin) 300 mg PO BID [facility] Hydrochlorothiazide (Microzide) 12.5 mg PO DAILY [facility] Sodium Chloride (Ns Inj) 1,000 mls @ 70 mls/hr IV.CONT .[id number] [facility] Last Infusion: 10/31/17 12:25 Dose: 70 mls/hr Lactulose (Lactulose Liq) 30 ml PO DAILY PRN PRN Reason: SEVERE CONSITIPATION Lisinopril (Prinivil) 5 mg PO BID [facility] Metoprolol Tartrate (Lopressor) 25 mg PO BID [facility] Senna/Docusate Sodium (Debbi-Colace) 1 tab PO BID [facility] Sennosides (Senokot) 17.2 mg PO Q12H PRN PRN Reason: Moderate Constipation Vitamin D (Vitamin D3) 2,000 unit PO DAILY [facility] Allergies Allergy/AdvReac Type Severity Reaction Status Date / Time diclofenac Allergy Severe Rash Verified 10/31/17 08:42 procaine Allergy Severe SHAKEY Verified 10/31/17 08:42 amlodipine AdvReac Mild INDIGESTION Verified 10/31/17 12:19 atorvastatin AdvReac Mild INDIGESTION Verified 10/31/17 12:19 pravastatin AdvReac Mild INDIGESTION Verified 10/31/17 12:19 simvastatin AdvReac Mild INDIGESTION Verified 10/31/17 12:19 Home Medications Medication Instructions Recorded Confirmed Type acetaminophen 1,000 mg PO Q6H PRN 09/04/17 10/31/17 History aspirin 81 mg PO DAILY 09/04/17 10/31/17 History cholecalciferol (vitamin D3) 2,000 unit PO DAILY 09/04/17 10/31/17 History [Vitamin D3] coenzyme Q10 100 mg PO BID 09/04/17 10/31/17 History gabapentin 300 mg PO BID 09/04/17 10/31/17 History hydrochlorothiazide 12.5 mg PO DAILY 09/04/17 10/31/17 History lisinopril 5 mg PO BID 09/04/17 10/31/17 History metoprolol tartrate 25 mg PO BID 09/04/17 10/31/17 History red yeast rice 600 mg PO BID 09/04/17 10/31/17 History apixaban [Eliquis] 5 mg PO BID 09/05/17 10/31/17 History Exam Vital signs: Vital Signs 10/31/17 08:42 10/31/17 09:06 10/31/17 09:13 Temperature 98.0 F Pulse Rate 60 Respiratory Rate 18 Blood Pressure 200/84 H 199/93 H Pulse Oximetry 97 97 10/31/17 09:30 10/31/17 10:00 10/31/17 12:00 Temperature Pulse Rate 57 L 55 L 61 Respiratory Rate 16 16 18 Blood Pressure 202/100 H 188/87 H 181/75 H Pulse Oximetry 98 97 98 10/31/17 13:51 Temperature 98.5 F Pulse Rate 63 Respiratory Rate 21 Blood Pressure 195/88 H Pulse Oximetry 98 Intake & Output 10/30/17 10/31/17 10/31/17 18:59 06:59 18:59 Weight 105.233 kg Other: Date of Last Bowel Movement 10/31/17 Weight On Admission 105.233 kg Narrative: GENERAL: in NAD, SKIN: Warm and dry. HEAD: Atraumatic. Normocephalic. EYES: Pupils equal and round. No scleral icterus. ENT: No nasal bleeding or discharge. Mucous membranes pink and moist. NECK: Trachea midline. No JVD. CARDIOVASCULAR: Regular rate and rhythm. RESPIRATORY: No accessory muscle use. Clear to auscultation. Breath sounds equal bilaterally. GASTROINTESTINAL: Abdomen soft, non-tender, nondistended. MUSCULOSKELETAL: Extremities without clubbing, cyanosis, or edema. No obvious deformities. NEUROLOGICAL: Awake and alert. No aphasia, fluent articulate, No facial asymmetry, OU 3-2mm, eomi, VFF, No drift, Motor grossly within normal limits. Five out of 5 muscle strength in the arms and legs. Tone normal in all 4 limbs, Sensory normal in all 4 extermities to pin, msr 1-2+ sym, no clonus, planterflexor, PSYCHIATRIC: Appropriate mood and affect; insight and judgment normal. - Constitutional no acute distress - Routine HEENT Exam Head: Present: normocephalic Eye: Present: EOMI Results - Labs CBC & Chem 7: 10/31/17 08:23 10/31/17 08:23 Labs: Laboratory Results - last 24 hr 10/31/17 10/31/17 10/31/17 08:23 08:23 08:23 CBC w Diff Auto diff final WBC 5.4 RBC 4.96 Hgb 16.1 H Hct 45.8 MCV 92.4 MCH 32.4 MCHC 35.1 RDW 13.7 Plt Count 199 MPV 8.0 Neut % (Auto) 50.8 Lymph % (Auto) 29.5 [place] % (Auto) 16.4 H Eos % (Auto) 2.0 Baso % (Auto) 1.3 Neut # (Auto) 2.7 Lymph # (Auto) 1.6 [place] # (Auto) 0.9 Eos # (Auto) 0.1 Baso # (Auto) 0.1 WBC Differential . Differential Comment . PT 11.2 INR 1.1 APTT 29.2 Fibrinogen 373 Sodium Potassium Chloride Carbon Dioxide Anion Gap BUN Creatinine Estimated GFR POC Glucose Random Glucose Calcium Total Bilirubin AST ALT Alkaline Phosphatase Total Creatine Kinase 55 Troponin I Less than 0.02 L Total Protein Albumin Beta HCG, Quant Cancelled Ur Collection Type Urine Color Urine Clarity Urine pH Ur Specific [place] Urine Protein Urine Glucose (UA) Urine Ketones Urine Occult Blood Urine Nitrate Urine Bilirubin Urine Urobilinogen Ur Leukocyte Esterase Urine WBC Ur Squamous Epith Cells Micro UA Comment Ur Microscopic Review Urine Culture Comments Urine Opiates Screen Ur Barbiturates Screen Ur Amphetamines Screen U Benzodiazepines Scrn Urine Cocaine Screen U Cannabinoids Screen Blood Type Antibody Screen 10/31/17 10/31/17 10/31/17 08:23 08:59 09:30 CBC w Diff WBC RBC Hgb Hct MCV MCH MCHC RDW Plt Count MPV Neut % (Auto) Lymph % (Auto) [place] % (Auto) Eos % (Auto) Baso % (Auto) Neut # (Auto) Lymph # (Auto) [place] # (Auto) Eos # (Auto) Baso # (Auto) WBC Differential Differential Comment PT INR APTT Fibrinogen Sodium 130 L Potassium 4.0 Chloride 94 L Carbon Dioxide 26.7 Anion Gap 9 BUN 9 Creatinine 0.87 Estimated GFR 62 L POC Glucose 93 Random Glucose 93 Calcium 9.6 Total Bilirubin 0.2 AST 26 ALT 26 Alkaline Phosphatase 52 Total Creatine Kinase Troponin I Total Protein 6.8 Albumin 3.4 Beta HCG, Quant Ur Collection Type Urine Color Urine Clarity Urine pH Ur Specific [place] Urine Protein Urine Glucose (UA) Urine Ketones Urine Occult Blood Urine Nitrate Urine Bilirubin Urine Urobilinogen Ur Leukocyte Esterase Urine WBC Ur Squamous Epith Cells Micro UA Comment Ur Microscopic Review Urine Culture Comments Urine Opiates Screen Ur Barbiturates Screen Ur Amphetamines Screen U Benzodiazepines Scrn Urine Cocaine Screen U Cannabinoids Screen Blood Type O Positive Antibody Screen Negative 10/31/17 10/31/17 09:30 09:30 CBC w Diff WBC RBC Hgb Hct MCV MCH MCHC RDW Plt Count MPV Neut % (Auto) Lymph % (Auto) [place] % (Auto) Eos % (Auto) Baso % (Auto) Neut # (Auto) Lymph # (Auto) [place] # (Auto) Eos # (Auto) Baso # (Auto) WBC Differential Differential Comment PT INR APTT Fibrinogen Sodium Potassium Chloride Carbon Dioxide Anion Gap BUN Creatinine Estimated GFR POC Glucose Random Glucose Calcium Total Bilirubin AST ALT Alkaline Phosphatase Total Creatine Kinase Troponin I Total Protein Albumin Beta HCG, Quant Ur Collection Type Cath Urine Color Yellow Urine Clarity Clear Urine pH 7.0 Ur Specific [place] Less/equal 1.005 Urine Protein Negative Urine Glucose (UA) Negative Urine Ketones Negative Urine Occult Blood Negative Urine Nitrate Negative Urine Bilirubin Negative Urine Urobilinogen 0.2 Ur Leukocyte Esterase Negative Urine WBC 0-5 Ur Squamous Epith Cells 0-5 Micro UA Comment Cath-culture not ind Ur Microscopic Review Microscopic reviewed Urine Culture Comments Cath-cult not ind Urine Opiates Screen Neg Ur Barbiturates Screen Neg Ur Amphetamines Screen Neg U Benzodiazepines Scrn Neg Urine Cocaine Screen Neg U Cannabinoids Screen Neg Blood Type Antibody Screen - Imaging Impressions Chest X-Ray 10/31/17 08:34 CONCLUSION: Previous bypass with mild compensated cardiomegaly. Head CT 10/31/17 08:34 CONCLUSION: 1. Possible small lacunar type hemorrhage basal ganglia left side. This could be confirmed by MRI. Report was called to Dr. Ashby at 08 57. Head MRI 10/31/17 09:05 CONCLUSION: 1. Mild chronic ischemic white matter changes. 2. No evidence of acute infarct, hemorrhage, mass or edema. 3. Hyperostosis frontalis. Review/Management - Diagnosis (1) Transient cerebral ischemia Code(s): G45.9 - Transient cerebral ischemic attack, unspecified Status: Acute Current Visit: Yes (2) Hypertensive urgency Code(s): I16.0 - Hypertensive urgency Status: Acute Current Visit: Yes (3) History of pulmonary embolism Code(s): Z86.711 - Personal history of pulmonary embolism Status: Acute Current Visit: Yes (4) Hypertensive encephalopathy Code(s): I67.4 - Hypertensive encephalopathy Status: Acute Current Visit: Yes - Review/Management Plan: Probable hypertensive encephalopathy MRI brain scan negative for acute stroke Recommendations Blood pressure control Behavioral modification and risk factor reduction. Weight loss, blood pressure control, blood sugar control, lipid control. Exercise (1) Transient cerebral ischemia Qualifiers: Transient cerebral ischemia type: unspecified Qualified Code(s): G45.9 - Transient cerebral ischemic attack, unspecified
--- NOTE | 2017-10-31 15:17 | US ---
EXAM DATE: 10/31/2017 2:45 PM EDT AGE/SEX: 86 years / Female INDICATIONS: Confusion. Facial droop. CLINICAL DATA: This is the patient's initial encounter. Patient reports that signs and symptoms have been present for 1 day and indicates a pain score of 0/10. MEDICAL/SURGICAL HISTORY: Hypertension. Myocardial infarction. Neuropathy. Pulmonary embolism. Appendectomy. Aortic valve replacement. CABG x5. Knee surgery. COMPARISON: No prior exams available for comparison. VELOCITY PARAMETERS: ICA/CCA Ratio: Right 1.1 , Left 1.1 ICA: Right 93 cm/sec, Left 71 cm/sec CCA: Right 83 cm/sec, Left 63 cm/sec ECA: Right 69 cm/sec, Left 66 cm/sec Vertebral: Right 38 cm/sec antegrade, Left 53 cm/sec antegrade FINDINGS: Right Carotid: Moderate arteriosclerotic plaque is visualized.The waveforms are within normal limits . Left Carotid: Moderate arteriosclerotic plaque is visualized. The waveforms are within normal limits . Other: None. CONCLUSION: 1. Right Internal Carotid Artery: Findings indicate <50% stenosis. 2. Left Internal Carotid Artery: Findings indicate <50% stenosis. 3. Antegrade flow in both vertebral arteries. Electronically signed by: Michael Majano MD 10/31/2017 3:16 PM EDT
--- NOTE | 2017-10-31 17:06 | MR ---
EXAM DATE: 10/31/2017 5:03 PM EDT AGE/SEX: 86 years / Female INDICATIONS: CVA. CLINICAL DATA: This is the patient's initial encounter. Patient reports that signs and symptoms have been present for 2 days and indicates a pain score of 0/10. MEDICAL/SURGICAL HISTORY: Hypertension. Myocardial infarction. CABG. Appendectomy. Rt knee. COMPARISON: [facility], MR HEAD W/O CONTRAST, 10/31/2017. . TECHNIQUE: 3D [id number] MRA was performed. Source images, multiplanar STS MIP, and 3D volum e MIP reconstructions were reviewed. 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 Both the A2 segments of the anterior cerebral arteries are visualized. There is a minimal stenosis at the origin of the right M1 segment of the anterior cerebral artery Basilar artery is patent. CONCLUSION: 1. Moderate systolic vascular disease as above. Electronically signed by: Anselmo Chowdhury MD 10/31/2017 5:05 PM EDT
--- NOTE | 2017-10-31 18:02 | ECHRPT ---
Indication: CVA/TIA CONCLUSIONS The left ventricular systolic function is normal with an estimated ejection fraction in the range of 60-65%. No regional wall motion abnormalities are present. Trace mitral valve regurgitation. Mitral annular calcification is present. The aortic valve prosthesis is normal to two-dimensional, color flow and Doppler interrogation. BP: / HR: Rhythm: Sinus MEASUREMENTS (Male / Female) Normal Values Technical Quality:Fair 2D ECHO LV Diastolic Diameter PLAX 4.8 cm 4.2 - 5.9 / 3.9 - 5.3 cm LV Systolic Diameter PLAX 3.5 cm IVS Diastolic Thickness 0.8 cm 0.6 - 1.0 / 0.6 - 0.9 cm LVPW Diastolic Thickness 0.8 cm 0.6 - 1.0 / 0.6 - 0.9 cm LV Relative Wall Thickness 0.3 RV Internal Dim ED PLAX 2.4 cm LVOT Diameter 1.5 cm LA Systolic Diameter LX 3.5 cm 3.0 - 4.0 / 2.7 - 3.8 cm LV Ejection Fraction MOD 4C 60.7 % LV Ejection Fraction 4C AL 62.6 % M-MODE Aortic Root Diameter MM 2.1 cm LA Systolic Diameter MM 3.8 cm LA Ao Ratio MM 1.8 AV Cusp Separation MM 1.0 cm DOPPLER AV Peak Velocity 243.0 cm/s AV Peak Gradient 23.6 mmHg AV Mean Gradient 12.0 mmHg AV Velocity Time Integral 51.7 cm LVOT Peak Velocity 79.7 cm/s LVOT Peak Gradient 2.5 mmHg LVOT Velocity Time Integral 18.7 cm AV Area Cont Eq vti 0.6 cm AV Area Cont Eq pk 0.6 cm MV Area PHT 2.0 cm Mitral E Point Velocity 82.9 cm/s Mitral A Point Velocity 119.0 cm/s Mitral E to A Ratio 0.7 LV E' Lateral Velocity 7.7 cm/s Mitral E to LV E' Lateral Ratio 10.8 LV E' Septal Velocity 4.7 cm/s Mitral E to LV E' Septal Ratio 17.7 PV Peak Velocity 82.8 cm/s PV Peak Gradient 2.7 mmHg FINDINGS LEFT VENTRICLE The left ventricular systolic function is normal with an estimated ejection fraction in the range of 60-65%. Normal left ventricular size. Wall thickness is normal. No regional wall motion abnormalities are present. RIGHT VENTRICLE Normal right ventricular size and systolic function. LEFT ATRIUM The left atrial size is normal. RIGHT ATRIUM The right atrial size is normal. ATRIAL SEPTUM Normal atrial septal thickness without atrial level shunting by limited color doppler interrogation. AORTA The aortic root and proximal ascending aorta are normal in size on limited imaging. MITRAL VALVE Structurally normal mitral valve. Trace mitral valve regurgitation. Mitral annular calcification is present. AORTIC VALVE The aortic valve prosthesis is normal to two-dimensional, color flow and Doppler interrogation. The re is no aortic valve regurgitation or stenosis. TRICUSPID VALVE Structurally normal tricuspid valve. No tricuspid valve stenosis or regurgitation. PULMONARY VALVE The pulmonary valve is not well visualized. VESSELS The inferior vena cava is normal in size. PERICARDIUM No pericardial effusion. Abilio Pardo (Electronically Signed) Final Date:31 October 2017 18:01
[2017-10-31] MEDS: Lisinopril 5 MG Tablet PO SCH (20:05)
[2017-10-31] MEDS: Gabapentin 300 MG Capsule PO SCH (20:06)
[2017-10-31] MEDS: Metoprolol Tartrate 25 MG Tablet PO SCH (20:06)
[2017-10-31] MEDS: Senna/Docusate Sodium 8.6/50 MG Tablet PO SCH (20:06)
[2017-10-31] MEDS ORDERED: Non-Formulary Drug (Coenzyme Q10 [Coenzyme Q10] 100 MG) PO SCH (21:00)
[2017-10-31 21:14] VITALS: RESP 20
[2017-11-01] MEDS: Sod Chloride 0.9% Inj 1,000 ML IV.CONT SCH (01:57)
[2017-11-01 07:24] LABS: Potassium 3.8 meq/L (3.5-5.1)
[2017-11-01 07:27] LABS: Calcium 8.9 mg/dL (8.5-10.1)
[2017-11-01 07:28] LABS: Carbon Dioxide 24.9 meq/L (21.0-32.0)
[2017-11-01] MEDS ORDERED: amLODIPine 5 MG Tablet PO SCH (09:00)
[2017-11-01 09:25] VITALS: BP 132/62; TEMP 96.7; O2SAT 93
[2017-11-01] MEDS: Gabapentin 300 MG Capsule PO SCH (09:37)
[2017-11-01] MEDS: Lisinopril 5 MG Tablet PO SCH (09:37)
[2017-11-01] MEDS: Metoprolol Tartrate 25 MG Tablet PO SCH (09:37)
[2017-11-01] MEDS: Senna/Docusate Sodium 8.6/50 MG Tablet PO SCH (09:38)
[2017-11-01 11:23] VITALS: PULSE 61
--- NOTE | 2017-11-01 11:28 | P.DS ---
Date of admission: 10/31/17 11:51 Primary care physician: Luci Shook MD Attending physician on discharge: Jayme Garcia Anticipated date of discharge: 11/01/17 Brief History from admission: Patient is an 86-year-old female who presented to the emergency department via [facility] as a stroke alert. Patient states she awakened this morning was feeling fine, however developed some mild confusion. EMS stated that on her arrival they noticed that she had difficulty getting words out of the noticed a mild right facial droop. Upon arrival in the emergency room the right facial droop and confusion and difficulty with speech resolved. Patient's "stroke scale was 1. The patient does take Eliquis for history of pulmonary embolism. She does have a history of significant coronary artery disease with previous CABG and a history of pulmonary embolus. She also has a history of hypertension her blood pressure has been running high and she was recently changed from lisinopril 2.5- 5 mg twice daily. She took extra lisinopril as well. Patient at this time denies any acute weakness of her arms or legs any difficulty with movement of the upper or lower extremities any visual changes nor at this time that she have any significant shortness of breath or any chest pain. Does not have any neurological symptoms she did say she felt a fullness in her head area for the last several days which could be consistent with her accelerated hypertension her blood pressure is high now we will add amlodipine to her current blood pressure medicines will use Vasotec as needed and follow blood pressure will also get a 2D echo and a carotid ultrasound. Patient update on day of discharge: good DS: Diagnosis - Discharge Diagnosis (1) Transient cerebral ischemia Status: Acute (2) Hypertensive urgency Status: Acute (3) History of pulmonary embolism Status: Acute DS: Summary Hospital Course: Patient admitted for TIA and accelerated hypertension,was on lisinopril and b viv and i added amlodine 5mg with control of BP,and has been symptom free. Patient work up included consult with neurology Dr. Liao ,MRI brain ,CT brain ,ekg,labs,2d echo,all unremarkable. Patient had carotid ultrasound-rt and lt carotid stenosis <50% stenosis and MRA brain-moderate vascular disease. Patient to follow up neurology 1-2 weeks and PCP . Patient amlodipine called in to [facility]. - Time Spent with Patient Total time spent providing and/or coordinating discharge services: Less than 30 minutes - Quality: VTE Deep Vein Thrombosis/Pulmonary Embolism Present on Admission: No Exam Vital signs: Vital Signs 10/31/17 12:00 10/31/17 13:51 10/31/17 16:00 Temperature 98.5 F 98.3 F Pulse Rate 61 63 67 Respiratory Rate 18 21 18 Blood Pressure 181/75 H 195/88 H 158/88 H Pulse Oximetry 98 98 96 10/31/17 20:00 10/31/17 20:08 10/31/17 21:58 Temperature 96.8 F L Pulse Rate 68 64 Respiratory Rate 20 Blood Pressure 171/67 H Pulse Oximetry 95 95 11/01/17 00:00 11/01/17 04:00 11/01/17 08:00 Temperature 97.3 F L 96.5 F L 96.7 F L Pulse Rate 62 62 58 L Respiratory Rate 20 20 20 Blood Pressure 137/67 134/63 132/62 Pulse Oximetry 96 94 L 93 L Intake & Output 10/31/17 11/01/17 11/01/17 18:59 06:59 18:59 Intake Total 740 / 740 1480 / 1480 Output Total 500 / 500 Balance 240 / 240 1480 / 1480 Weight 105.233 kg 105.4 kg Intake: IV 1000 / 1000 NS Inj 1,000 ML @ 70 mls/hr IV. 1000 / 1000 CONT .[id number] [facility] Rx#: [id number] Oral 460 / 460 480 / 480 Other 280 / 280 Output: Urine 500 / 500 Other: # Voids 2 Date of Last Bowel Movement 10/31/17 10/31/17 Weight On Admission 105.233 kg Narrative: GENERAL: SKIN: Warm and dry. HEAD: Normocephalic. EYES: No scleral icterus. No injection or drainage. NECK: Supple, trachea midline. No JVD or lymphadenopathy. CARDIOVASCULAR: Regular rate and rhythm without murmurs, gallops, or rubs. RESPIRATORY: Breath sounds equal bilaterally. No accessory muscle use. GASTROINTESTINAL: Abdomen soft, non-tender, nondistended. MUSCULOSKELETAL: No cyanosis, or edema. BACK: Nontender without obvious deformity. No CVA tenderness. Results Procedures completed during hospitalization: none Completed studies during hospitalization: MRI brain,mra brain,2d echo carotid ultrasound ekg Labs on day of discharge: Labs from last 24 hours 11/01/17 10/31/17 06:07 09:30 Sodium 133 L Potassium 3.8 Chloride 99 Carbon Dioxide 24.9 Anion Gap 9 BUN 10 Creatinine 0.82 Estimated GFR 66 L Random Glucose 91 Calcium 8.9 Blood Type O Positive Antibody Screen Negative - Impressions ITS Impressions Carotid Doppler Study 10/31/17 00:00 CONCLUSION: 1. Right Internal Carotid Artery: Findings indicate <50% stenosis. 2. Left Internal Carotid Artery: Findings indicate <50% stenosis. 3. Antegrade flow in both vertebral arteries. Chest X-Ray 10/31/17 08:34 CONCLUSION: Previous bypass with mild compensated cardiomegaly. Head CT 10/31/17 08:34 CONCLUSION: 1. Possible small lacunar type hemorrhage basal ganglia left side. This could be confirmed by MRI. Report was called to Dr. Ashby at 08 57. Head MRI 10/31/17 09:05 CONCLUSION: 1. Mild chronic ischemic white matter changes. 2. No evidence of acute infarct, hemorrhage, mass or edema. 3. Hyperostosis frontalis. Head MRA 10/31/17 15:33 CONCLUSION: 1. Moderate systolic vascular disease as above. Discharge Plan - Discharge Disposition Patient Disposition: 01 Discharge Home - Discharge Condition Condition: Stable - Discharge Order Discharge Orders: Discharge Order (Routine); Ordered 11/01/17 Ordered By: Jayme Garcia - Discharge Details Anticipated Discharge Date: 11/01/17 - Physicians Team Primary Care Provider: Luci Shook Attending Provider: Jayme Garcia Other Providers: Ayaz Calabrese MD
== END 2017-11-01 13:28 | disposition home or self-care (01) ==
LOC: PHED 08:27 → PHEDA 08:27 → PH3 13:10
PROVIDERS: ADMIT Internal Medicine; ATTEND Internal Medicine
DX: I25.2 Old myocardial infarction; I16.0 Hypertensive urgency; G62.9 Polyneuropathy, unspecified; I11.9 Hypertensive heart disease without heart failure; Z95.2 Presence of prosthetic heart valve; Z88.8 Allergy status to other drugs, medicaments and biological substances; Z86.711 Personal history of pulmonary embolism; I25.10 Atherosclerotic heart disease of native coronary artery without angina pectoris; M85.80 Other specified disorders of bone density and structure, unspecified site; Z79.01 Long term (current) use of anticoagulants; Z79.82 Long term (current) use of aspirin; Z95.1 Presence of aortocoronary bypass graft; I65.23 Occlusion and stenosis of bilateral carotid arteries